=== PATIENT | male | born 1945 | race Caucasian/White ===

== ENCOUNTER 2020-06-10 09:28 | Day surgery (SDC) | payer MEDICARE, OTHER ==
--- NOTE | 2020-06-10 09:22 | HP ---
DATE OF SURGERY: 06/10/2020 HISTORY OF PRESENT ILLNESS: The patient is a 74 year-old who has long standing port for IV treatments over the last eight weeks. He had sluggish port. They tried some thrombolytics and he failed to improve. He is referred for dysfunctional port and placing a new port for watermaster IV access for IV treatments. PAST MEDICAL HISTORY: Crohn's disease in the past. Prostate cancer. History of Factor V Leiden issues in the past. Osteoarthritis. Hypertension. Hypercholesterolemia. Chronic obstructive pulmonary disease. PAST SURGICAL HISTORY: Cataract. Partial colon resection by Dr. King. Cholecystectomy in the past. He had enterolysis in the past. Neck surgery by Dr. Eugene. Arthroscopy of the shoulder, rotator cuff repair, tendon repair in the past. MEDICATIONS: Lumigan eye drops. Norvasc. Warfarin. He has been on I-Caps. ALLERGIES: NKDA. HE REPORTS SENSITIVITY TO MORPHINE IN THE PAST. FAMILY HISTORY: Significant for breast cancer, heart disease and stroke. SOCIAL HISTORY: No smoking or alcohol abuse. REVIEW OF SYSTEMS: Fourteen systems reviewed, negative or noncontributory as above and per preadmission questionnaire. PHYSICAL EXAMINATION: GENERAL: No acute distress. HEENT: Sclerae nonicteric. NECK: No JVD. CHEST: Clear to auscultation. CVS: Regular rate and rhythm. ABDOMEN: Soft, nondistended. EXTREMITIES: No significant edema. NEURO: Alert, oriented, moving extremities symmetrically. PSYCH: Appropriate mood and affect. IMPRESSION: Dysfunctional port in need of removal and placing a new port. Risks and benefits explained in detail including but not limited to bleeding, infection, risk of thrombosis or pneumothorax, risk of hematoma or seroma formation. Risk of Port-A-Cath failure possibly requiring removing the port and tying off the catheter, possibility of inability to place a new port, general risk of anesthesia, deep venous thrombosis, pulmonary embolism, pneumonia but not limited to. He understands and agrees to the planned procedure, will proceed with removal of old dysfunctional port and placing a new Port-A-Cath for long-term IV access.
[~2020-06-10 09:28] MED LIST: XYLOCAINE 1% HCL 20 ML MDV ONE
[2020-06-10] MEDS: Lactated Ringers 1,000 ML IV SCH (09:53)
[2020-06-10] MEDS: CEFAZOLIN 2 GM-D5W BAG** 2 GM/50 ML ML IV SCH (09:53)
[2020-06-10] MEDS ORDERED: Versed 2 MG/2 ML Injection ONE (11:08)
[2020-06-10] MEDS ORDERED: SUBLIMAZE 100 MCG/2 ML ONE (11:08)
[2020-06-10] MEDS ORDERED: DIPRIVAN 200 MG/20 ML IV ONE ×3 (11:08→11:38)
[2020-06-10] MEDS ORDERED: PHENYLEPHRINE HCL ONE (11:42)
--- NOTE | 2020-06-10 12:19 | XRAY ---
Indication: Port placement. Intraoperative fluoroscopy provided for 2 seconds. Single digital spot image demonstrates partially visualized right Port-A-Cath and incompletely visualized left Port-A-Cath tip. Both catheter tips project over the SVC. Correlate with intraoperative findings/report.
[2020-06-10 13:04] VITALS: BP 153/80; PULSE 63; O2SAT 96
--- NOTE | 2020-06-10 14:57 | OP ---
SURGERY DATE/TIME: 06/10/2020 1108 PREOPERATIVE DIAGNOSIS: Dysfunctional Port-A-Cath he has had for several years, need for group home IV access for IV infusions. POSTOPERATIVE DIAGNOSIS: Dysfunctional Port-A-Cath he has had for several years, need for group home IV access for IV infusions. PROCEDURES: 1) Port-A-Cath placement with cannulation right internal jugular vein with C-arm fluoroscopy. 2) Removal of tunneled old Port-A-Cath left subclavian vein. SURGEON: Dr. Armani Vargas. ANESTHESIA: MAC. ESTIMATED BLOOD LOSS: Minimal. INDICATIONS: As noted above. Risks and benefits explained in detail and not limited to and consent obtained. DESCRIPTION OF PROCEDURE AND FINDINGS: The patient is taken to the operating room. MAC anesthesia induced. Prepped and draped in usual sterile fashion. After official time out and no disagreement with the planned procedure in Trendelenburg position as he had his old port that was dysfunctional in the left chest, it was elected to go to the right subclavian. 1% lidocaine local was infiltrated. However there was inadequate return for passing the guidewire the subclavian approach. It was then elected to go back to the left subclavian. Good dark nonpulsatile venous return was obtained. However the guide wire would not pass more than just a few centimeters past the end of the needle. Despite repositioning this was not going in well enough to allow for placement of a catheter, it was felt best to go ahead and do the jugular approach on the opposite side. As the ultrasound was not immediate available, so 1% lidocaine local was infiltrated over what was felt to be the internal jugular area. An 18 gauge cannulation needle is inserted on first pass. Good dark nonpulsatile venous return. Guide wire passed without difficulty, confirmed down the superior vena cava by C-arm fluoroscopy this was followed by anesthetizing the tunnel tract and port pocket. A transverse incision made inferior subcu. Port pocket created with cautery. Port secured to the chest wall with Prolene suture x2. Catheter tunneled down through cannulation stab wound down to the port pocket area. Port secured to the chest wall with Prolene suture x2. The dilator and break away sheath easily fed down the guide wire and the catheter fed down the breakaway sheath. Tip was pulled back and noted in the distal superior vena cava the top of the right atrial area on C-arm fluoroscopy. Catheter cut to appropriate length, snapped on the port at the hub. The port aspirated dark, nonpulsatile venous return with ease. Flushed with heparinized saline provided by the staff with ease. The lung montoya were noted to be up bilaterally. Tip was in good location distal superior vena cava just above the right atrial area. It was felt this would maximize function and minimize needing replaced in the short term. It was in good position. At this point good hemostasis noted. Subcu closed with 3-0 Vicryl, skin closed with 4-0 Vicryl. Cannulation stab wound closed with 4-0 Vicryl. At this point removal of the old tunnel catheter was addressed. 1% lidocaine local was infiltrated. A sharp incision made through the old scar. Dissection carried down with the aid of cautery down to the port itself. Two Prolene sutures carefully removed. The port was carefully mobilized away from its fibrous capsule easily pulled free and the entire port and catheter appeared to be intact and passed off. Tunnel tract closed with 3-0 Vicryl, fibrous pocket closed with 3-0 Vicryl. Subcu closed with 3-0 Vicryl. Skin closed with 4-0 Vicryl. Steri-Strips and sterile dressing applied. The patient tolerated the procedure well. There were no immediate complications. Findings discussed with his out in the waiting area. He was transferred to recovery in stable condition.
== END 2020-06-10 13:13 | disposition home or self-care (01) ==
LOC: SDC 09:28
PROVIDERS: ATTEND Surgery
DX: T82.594A Other mechanical complication of infusion catheter, initial encounter (principal); D68.2 Hereditary deficiency of other clotting factors; I10 Essential (primary) hypertension; E78.00 Pure hypercholesterolemia, unspecified; J44.9 Chronic obstructive pulmonary disease, unspecified; Z79.899 Other long term (current) drug therapy; Z79.01 Long term (current) use of anticoagulants; Z85.46 Personal history of malignant neoplasm of prostate
CPT/HCPCS: 36571; 36590; 77001; 93005; C1788; 99100; J0690; J1642; J2250; J2370; J2704; J3010

== ENCOUNTER 2024-02-14 08:24 | Day surgery (SDC) | payer MEDICARE, OTHER ==
[2024-02-14 08:58] VITALS: RESP 16
[2024-02-14 09:21] LABS: Calcium 9.6 mg/dL (8.4-10.2); Creatinine 1 1.4 mg/dL (0.66-1.25); EST GLOMERULAR FILTRATION RATE 51.1 ML/MIN
[2024-02-14 09:23] LABS: Potassium 3.9 mmol/L (3.5-5.1)
[2024-02-14 09:36] LABS: ANION GAP 11.1 MEQ/L (5-15)
--- NOTE | 2024-02-14 10:28 | HP ---
HISTORY OF PRESENT ILLNESS: Crohn's, followed by Gastroenterology. No bloody stools. He is in need for followup colonoscopy. Family history negative for colon cancer. No prior history of colon polyps. PAST MEDICAL HISTORY: Crohn's, glaucoma, hypertension, history of prostate cancer, history of Factor V, chronic warfarin therapy. HOME MEDICATIONS: Skyrizi, amlodipine, acetaminophen, warfarin, bimatoprost 0.01% drops. ALLERGIES: No known drug allergies. PAST SURGICAL HISTORY: Cataract surgery, cholecystectomy, spinal fusion, carpal tunnel, radical prostatectomy, cardiac catheterization, portacath, colon resection back in 1988 and 1990 for Crohn's, renal calculi, rotator cuff surgery in the past. SOCIAL HISTORY: No smoking or alcohol abuse. FAMILY HISTORY: Heart disease. REVIEW OF SYSTEMS: Twelve systems reviewed. No chest pain or palpitations. Other systems negative or noncontributory as above and per preadmission questionnaire. PHYSICAL EXAMINATION: GENERAL: Height 6 feet. BMI 27.8. No acute distress. HEENT: Sclerae nonicteric. Extraocular muscles intact. NECK: No JVD. CHEST: Clear. Equal excursion, nonlabored breathing. CARDIOVASCULAR: Regular rate and rhythm. ABDOMEN: Soft. SKIN: Dry. EXTREMITIES: No clubbing, cyanosis, edema. NEUROLOGIC: Alert and oriented. Moving extremities symmetrically. PSYCHIATRIC: Appropriate mood and affect. RECTAL: Patient had rectal seton in place. IMPRESSION: History of polyps, history of Crohn's, needs followup colonoscopy. General risks of bleeding, infection, risk of bowel injury or perforation, risk of misdiagnosis or incomplete exam risk, general risk of anesthesia or sedation, risk of bowel prep. He understands we do not medically manage Crohn's and will still need to continue followup with Gastroenterology.
[2024-02-14] MEDS ORDERED: Xylocaine-Mpf 2% 5 Ml Vial ONE (10:46)
[2024-02-14] MEDS ORDERED: DIPRIVAN 200 MG/20 ML IV ONE ×2 (10:47→11:03)
[2024-02-14] MEDS ORDERED: Ephedrine Sulfate 50 MG/ML ONE (11:12)
[2024-02-14 11:46] VITALS: O2SAT 95
[2024-02-14 11:59] VITALS: BP 138/99; PULSE 80; TEMP 97.8
--- NOTE | 2024-02-15 11:55 | OP ---
SURGERY DATE/TIME: 02/14/2024 [id number] PREOPERATIVE DIAGNOSES: 1) History of polyps. 2) History of Crohn's disease. 3) History of prior bowel resection with Crohn's in the past. 4) Due for followup screening colonoscopy. POSTOPERATIVE DIAGNOSES: 1) Small raised area versus inflammation in the sigmoid colon. 2) Small mild inflammation, small bowel and colon. 3) Fair, limited bowel prep. PROCEDURES: 1) Colonoscopy to the ileum with retrograde ileoscopy. 2) Cold biopsy of mild inflammation in the small bowel and colon. 3) Hot biopsy of small raised lesion versus inflammation in the sigmoid colon. SURGEON: Chapincito Vargas MD. ANESTHESIA: MAC. ESTIMATED BLOOD LOSS: Minimal. INDICATIONS: As noted above, consent obtained. DESCRIPTION OF PROCEDURE AND FINDINGS: The patient was taken to the endoscopy room. MAC anesthesia was induced. After official time-out and no disagreement with planned procedure, digital rectal exam. Patient has a little bit of chronic anal narrowing but was patent. The colonoscope was easily passed up through the colon, up through the ileum. He had a prior partial colectomy years ago. Scope was carefully withdrawn. The majority part of the more proximal end was unremarkable. There was some minimal inflammation more distally. Cold biopsy taken in that area as well as the colon and some minor inflammation versus prep irritation. Otherwise, there was a small 2 mm raised area. Whether this was just inflammatory raised area versus early polyp, it was biopsied with hot biopsy forceps. Good hemostasis noted. Otherwise, no signs of any large polyps, masses, or obstructing lesions, and the prep overall was fair, on the limited side, a large amount of liquidy stool. Otherwise, there were no signs of any large polyps, masses or mucosal lesions. Patient tolerated the procedure well. There were no immediate complications. Findings discussed with family in the waiting area. Otherwise, we will see him back in the office to go over the biopsy results. If these are all just inflammation, likely given the prep quality, recommend followup colonoscopy in 5 years. Final determination and followup dependent on path findings.
== END 2024-02-14 12:14 | disposition home or self-care (01) ==
LOC: SDC 08:24
PROVIDERS: ATTEND Surgery
DX: Z12.11 Encounter for screening for malignant neoplasm of colon (principal); Z09 Encounter for follow-up examination after completed treatment for conditions other than malignant neoplasm; Z86.0100 Personal history of colon polyps, unspecified; Z87.19 Personal history of other diseases of the digestive system; Z90.49 Acquired absence of other specified parts of digestive tract; Z85.46 Personal history of malignant neoplasm of prostate; I10 Essential (primary) hypertension; K51.40 Inflammatory polyps of colon without complications
CPT/HCPCS: 36415; 80048; 93005; 99100; J1642; J2704